=== PATIENT | female | born 1945 | race Native Hawaiian/Other Pacific Islander ===

== ENCOUNTER 2016-10-13 16:02 | Outpatient (CLI) | payer OTHER ==
[2016-10-13 16:47] LABS: PLATELET COUNT 253 K/uL (152-353)
[2016-10-13 17:14] LABS: POTASSIUM 4.1 mmol/L (3.6-5.2)
== END 2016-10-13 19:18 | disposition home or self-care (01) ==
LOC: LAB 16:02
PROVIDERS: Nurse Practitioner Family
DX: I10 Essential (primary) hypertension (principal); E03.8 Other specified hypothyroidism; E11.9 Type 2 diabetes mellitus without complications
CPT/HCPCS: 80053; 80061; 83036; 84439; 84443; 85027

== ENCOUNTER 2017-01-06 15:12 | Outpatient (CLI) | payer OTHER ==
[2017-01-06 15:44] LABS: PLATELET COUNT 256 K/uL (152-353)
[2017-01-06 16:11] LABS: POTASSIUM 4.3 mmol/L (3.6-5.2)
== END 2017-01-06 19:08 | disposition home or self-care (01) ==
LOC: LAB 15:12
PROVIDERS: Nurse Practitioner Family
DX: Z00.00 Encounter for general adult medical examination without abnormal findings (principal); I10 Essential (primary) hypertension; E03.8 Other specified hypothyroidism; E11.9 Type 2 diabetes mellitus without complications; R74.8 Abnormal levels of other serum enzymes; E55.9 Vitamin D deficiency, unspecified
CPT/HCPCS: 80053; 80061; 82306; 82607; 83036; 84436; 84443; 85027

== ENCOUNTER 2017-04-15 09:38 | Inpatient (IN) | payer OTHER ==
[~2017-04-15] VITALS: Ht 157.5 cm; Wt 94.0 kg
[2017-04-15 10:56] LABS: PLATELET COUNT 306 K/uL (152-353)
[2017-04-15 11:37] LABS: POTASSIUM 3.5 mmol/L (3.6-5.2)
[2017-04-15 12:20] VITALS: BP 116/66; TEMP 98.4; Ht 157.5 cm; Wt 94.0 kg
[2017-04-15] MEDS ORDERED: CLOBETASOL0.051 EX (14:38)
[2017-04-15] MEDS ORDERED: TERB250T PO (14:39)
[2017-04-15] MEDS ORDERED: METFTAB PO (14:39)
[2017-04-15] MEDS ORDERED: AVALIDE1 TA1 PO (14:40)
[2017-04-15] MEDS ORDERED: GLIM4TAB PO (14:40)
[2017-04-15] MEDS ORDERED: TIROSINT88 MCG PO (14:41)
[2017-04-15] MEDS ORDERED: HYDROCHLOROT12.5 M1 PO (14:41)
[2017-04-15] MEDS ORDERED: VITAMIN D32000 UNI2 PO (14:42)
[2017-04-15 15:51] VITALS: BP 122/63; TEMP 99
[2017-04-15 20:00] VITALS: BP 118/73; TEMP 98.3
[2017-04-16] VITALS: BP 112/65; TEMP 100.1
[2017-04-16 04:00] VITALS: BP 111/68; TEMP 98.3
[2017-04-16 05:53] LABS: POTASSIUM 3.5 mmol/L (3.6-5.2)
[2017-04-16 06:23] LABS: PLATELET COUNT 276 K/uL (152-353)
[2017-04-16 08:18] VITALS: BP 116/62; TEMP 98.3
[2017-04-16 12:00] VITALS: BP 114/73; TEMP 98.4
[2017-04-16 16:00] VITALS: BP 117/68; TEMP 98.5
[2017-04-16 20:00] VITALS: BP 108/66; TEMP 98.8
[2017-04-17] VITALS: BP 144/56; TEMP 98.8
[2017-04-17 04:00] VITALS: BP 139/60; BP 144/56; TEMP 98.7; TEMP 98.8
[2017-04-17 04:56] LABS: PLATELET COUNT 289 K/uL (152-353)
[2017-04-17 05:22] LABS: POTASSIUM 3.5 mmol/L (3.6-5.2)
[2017-04-17 07:00] VITALS: BP 131/73; TEMP 98.1
[2017-04-17 12:00] VITALS: BP 124/66; TEMP 98.1
== END 2017-04-17 16:35 | disposition home or self-care (01) | DRG 687 ==
LOC: MED/SURG 09:38
PROVIDERS: ADMIT Family Medicine
DX: C64.1 Malignant neoplasm of right kidney, except renal pelvis (principal); E87.1 Hypo-osmolality and hyponatremia; N39.0 Urinary tract infection, site not specified; R51 Headache; E03.8 Other specified hypothyroidism; E87.6 Hypokalemia; E88.09 Other disorders of plasma-protein metabolism, not elsewhere classified; I12.9 Hypertensive chronic kidney disease with stage 1 through stage 4 chronic kidney disease, or unspecified chronic kidney disease; E11.22 Type 2 diabetes mellitus with diabetic chronic kidney disease; N18.3 Chronic kidney disease, stage 3 (moderate); R60.9 Edema, unspecified; B96.20 Unspecified Escherichia coli [E. coli] as the cause of diseases classified elsewhere; N28.89 Other specified disorders of kidney and ureter
CPT/HCPCS: 36415; 36591; 80053; 81000; 82248; 82948; 83735; 84436; 84443; 85027; 87077; 87086; 87088; 87186; 93005; A9576; J1815

== ENCOUNTER 2017-05-12 14:28 | Outpatient (CLI) | payer OTHER ==
[~2017-05-12 14:28] MED LIST: AVALIDE1 TA1 PO; CLOBETASOL0.051 EX; GLIM4TAB PO; HYDROCHLOROT12.5 M1 PO; METFTAB PO; TERB250T PO; TIROSINT88 MCG PO; VITAMIN D32000 UNI2 PO
[2017-05-12 15:13] LABS: PLATELET COUNT 245 K/uL (152-353)
[2017-05-12 15:35] LABS: POTASSIUM 4.1 mmol/L (3.6-5.2)
== END 2017-05-12 19:50 | disposition home or self-care (01) ==
LOC: LAB 14:28
PROVIDERS: Nurse Practitioner Family
DX: E11.9 Type 2 diabetes mellitus without complications (principal); I10 Essential (primary) hypertension; R51 Headache; E03.8 Other specified hypothyroidism; E55.9 Vitamin D deficiency, unspecified; Z79.899 Other long term (current) drug therapy; Z51.81 Encounter for therapeutic drug level monitoring
CPT/HCPCS: 80053; 80061; 83036; 84436; 84443; 85027

== ENCOUNTER 2017-11-05 08:51 | Outpatient (CLI) | payer OTHER ==
[2017-11-05 11:25] LABS: PLATELET COUNT 278 K/uL (152-353)
[2017-11-05 11:50] LABS: POTASSIUM 4.6 mmol/L (3.6-5.2)
== END 2017-11-05 19:20 | disposition home or self-care (01) ==
LOC: LABW 08:51
PROVIDERS: Internal Medicine
DX: E11.9 Type 2 diabetes mellitus without complications (principal); E55.9 Vitamin D deficiency, unspecified; E03.8 Other specified hypothyroidism; R82.99 Other abnormal findings in urine
CPT/HCPCS: 36415; 80053; 80061; 81000; 82043; 82306; 82570; 83036; 84439; 84443; 85027; 87086; 87088

== ENCOUNTER 2018-04-07 11:40 | Outpatient (CLI) | payer OTHER | END 2018-04-07 19:47 | disposition home or self-care (01) | LOC: LABW 11:40 | PROVIDERS: Internal Medicine | DX: M79.1 Myalgia (principal) | CPT/HCPCS: 36415; 80048; 80076; 82550; 85651 ==

== ENCOUNTER 2018-06-09 10:30 | Outpatient (CLI) | payer OTHER | END 2018-06-09 19:34 | disposition home or self-care (01) | LOC: RAD 10:30 | DX: J40 Bronchitis, not specified as acute or chronic (principal) ==

== ENCOUNTER 2018-08-25 09:41 | Outpatient (CLI) | payer OTHER ==
[2018-08-25 10:11] LABS: PLATELET COUNT 274 K/uL (152-353)
[2018-08-25 10:23] LABS: POTASSIUM 4.3 mmol/L (3.6-5.2)
== END 2018-08-25 23:25 | disposition home or self-care (01) ==
LOC: LABW 09:41
PROVIDERS: Internal Medicine
DX: E11.9 Type 2 diabetes mellitus without complications (principal); E03.9 Hypothyroidism, unspecified; E55.9 Vitamin D deficiency, unspecified
CPT/HCPCS: 36415; 80053; 80061; 81000; 82043; 82306; 82570; 83036; 84439; 84443; 85027

== ENCOUNTER 2019-02-21 08:45 | Outpatient (CLI) | payer OTHER | END 2019-02-21 23:41 | disposition home or self-care (01) | LOC: CT 08:45 | DX: R10.2 Pelvic and perineal pain (principal) | CPT/HCPCS: 36415; 82565; 84520; Q9963 ==

== ENCOUNTER 2019-08-04 10:24 | Outpatient (CLI) | payer OTHER ==
[2019-08-04 10:43] LABS: PLATELET COUNT 265 K/uL (152-353)
[2019-08-04 15:18] LABS: POTASSIUM 4.3 mmol/L (3.6-5.2)
== END 2019-08-04 16:00 | disposition home or self-care (01) ==
LOC: LABW 10:24
PROVIDERS: Internal Medicine
DX: Z00.00 Encounter for general adult medical examination without abnormal findings (principal); E11.9 Type 2 diabetes mellitus without complications; E03.8 Other specified hypothyroidism; Z13.820 Encounter for screening for osteoporosis; E55.9 Vitamin D deficiency, unspecified
CPT/HCPCS: 36415; 80053; 80061; 81000; 82306; 83036; 84439; 84443; 85027

== ENCOUNTER 2020-02-15 17:10 | Outpatient (CLI) | payer OTHER ==
[2020-02-15 17:33] LABS: PLATELET COUNT 258 K/uL (152-353)
[2020-02-15 17:56] LABS: POTASSIUM 4.3 mmol/L (3.6-5.2)
== END 2020-02-15 20:58 | disposition home or self-care (01) ==
LOC: LABW 17:10
PROVIDERS: ATTEND Internal Medicine
DX: I10 Essential (primary) hypertension (principal); M81.0 Age-related osteoporosis without current pathological fracture; E11.9 Type 2 diabetes mellitus without complications; E55.9 Vitamin D deficiency, unspecified
CPT/HCPCS: 80053; 80061; 81000; 82043; 82306; 82570; 83036; 84439; 84443; 85027

== ENCOUNTER 2020-04-18 14:30 | Outpatient (CLI) | payer OTHER | END 2020-04-18 23:44 | disposition home or self-care (01) | LOC: LAB 14:30 | DX: E03.8 Other specified hypothyroidism (principal) | CPT/HCPCS: 84439; 84443 ==

== ENCOUNTER 2020-07-11 13:35 | Outpatient (CLI) | payer OTHER ==
[2020-07-11 14:42] LABS: PLATELET COUNT 242 K/uL (152-353)
[2020-07-11 15:05] LABS: POTASSIUM 4.4 mmol/L (3.6-5.2)
== END 2020-07-11 19:27 | disposition home or self-care (01) ==
LOC: LAB 13:35
PROVIDERS: ATTEND Internal Medicine
DX: E11.9 Type 2 diabetes mellitus without complications (principal)
CPT/HCPCS: 80053; 80061; 81000; 83036; 84439; 84443; 85027

== ENCOUNTER 2021-01-13 10:50 | Outpatient (CLI) | payer OTHER ==
[2021-01-26 06:12] LABS: PLATELET COUNT 224 K/uL (152-353)
[2021-01-26 06:13] LABS: POTASSIUM 4.5 mmol/L (3.6-5.2)
== END 2021-01-13 13:00 | disposition home or self-care (01) ==
LOC: LAB 10:50
PROVIDERS: ATTEND Internal Medicine
DX: E11.9 Type 2 diabetes mellitus without complications (principal)
CPT/HCPCS: 80053; 80061; 81000; 83036; 84439; 84443; 85027

== ENCOUNTER 2021-09-10 08:50 | Emergency (ER) | payer OTHER ==
[~2021-09-10] VITALS: Ht 157.5 cm; Wt 84.4 kg
[2021-09-10 09:06] VITALS: BP 135/67; TEMP 98
[2021-09-10 09:11] LABS: PLATELET COUNT 435 K/uL (152-353)
[2021-09-10 09:20] LABS: POTASSIUM 4.3 mmol/L (3.6-5.2)
== END 2021-09-10 11:49 | disposition still patient (30) ==
LOC: ED 08:50
PROVIDERS: Hospitalist
DX: R07.89 Other chest pain (principal); R06.02 Shortness of breath
CPT/HCPCS: 80053; 82550; 83880; 84484; 85027; 85379; 85610; 85730; 93005; 96372; 99284; J1650; Q9963

== ENCOUNTER 2022-03-10 09:52 | Outpatient (CLI) | payer OTHER | END 2022-03-10 21:34 | disposition home or self-care (01) | LOC: LABW 09:52 | PROVIDERS: ATTEND Internal Medicine | DX: J40 Bronchitis, not specified as acute or chronic (principal); Z11.52 Encounter for screening for COVID-19 | CPT/HCPCS: 87635; U0003 ==

== ENCOUNTER 2022-12-02 13:47 | Outpatient (CLI) | payer OTHER ==
[2022-12-02 14:07] LABS: PLATELET COUNT 219 K/uL (152-353)
[2022-12-02 14:37] LABS: POTASSIUM 4.2 mmol/L (3.6-5.2)
== END 2022-12-02 19:00 | disposition home or self-care (01) ==
LOC: LAB 13:47
PROVIDERS: ATTEND Internal Medicine
DX: E11.9 Type 2 diabetes mellitus without complications (principal); E55.9 Vitamin D deficiency, unspecified; R82.998 Other abnormal findings in urine
CPT/HCPCS: 80053; 80061; 81000; 82043; 82306; 83036; 84439; 84443; 85027; 87077; 87086; 87088; 87186

== ENCOUNTER 2022-12-10 09:45 | Outpatient (CLI) | payer OTHER | END 2022-12-10 20:49 | LOC: RAD 09:45 | PROVIDERS: ATTEND Internal Medicine | DX: E55.9 Vitamin D deficiency, unspecified (principal); N95.8 Other specified menopausal and perimenopausal disorders ==